=== PATIENT | female | born 1975 | race African-American/Black ===

== ENCOUNTER 2017-03-15 22:12 | Emergency (ER) | payer MEDICAID ==
[~2017-03-15] VITALS: Ht 170.2 cm; Wt 84.0 kg
[~2017-03-15 22:12] MED LIST: QUET50TA11 PO
[2017-03-16] MEDS ORDERED: DIPHENHYDRAMINE 25MG CAPSULE PO ONE (00:30)
[2017-03-16] MEDS ORDERED: PREDNISONE 20MG TABLET PO ONE (00:30)
[2017-03-16 01:04] VITALS: BP 126/77
== END 2017-03-16 01:15 | disposition home or self-care (01) ==
LOC: ER 03-16 01:11
DX: L29.9 Pruritus, unspecified (principal); W57.XXXA Bitten or stung by nonvenomous insect and other nonvenomous arthropods, initial encounter; Y93.89 Activity, other specified; F31.9 Bipolar disorder, unspecified; F17.210 Nicotine dependence, cigarettes, uncomplicated; Z88.2 Allergy status to sulfonamides; Y92.9 Unspecified place or not applicable; Y99.8 Other external cause status
CPT/HCPCS: 99283; Q0163

== ENCOUNTER 2017-05-21 16:08 | Emergency (ER) | payer MEDICAID ==
[~2017-05-21] VITALS: Ht 165.1 cm; Wt 65.0 kg
[2017-05-21 16:16] VITALS: BP 100/60
== END 2017-05-21 19:45 | disposition left against medical advice (07) ==
LOC: ER 16:37
DX: M79.662 Pain in left lower leg (principal); Z53.21 Procedure and treatment not carried out due to patient leaving prior to being seen by health care provider

== ENCOUNTER 2017-06-16 11:38 | Emergency (ER) | payer MEDICAID ==
[~2017-06-16] VITALS: Ht 162.6 cm; Wt 60.0 kg
[~2017-06-16 11:38] MED LIST changes: +QUET50TA PO; -QUET50TA11 PO
[2017-06-16 19:28] LABS: HEMATOCRIT. 35.1 % (36.0-48.0); HEMOGLOBIN. 11.8 g/dL (12.0-16.0); MEAN CORPUSCULAR HEMOGLOBIN 32.8 pg (28.0-32.0); MEAN CORPUSCULAR VOLUME 97.4 fL (81.0-99.0); MEAN PLATELET VOLUME 12.6 fl (7.4-10.4); RED CELL DISTRIBUTION WIDTH 17.3 % (11.6-14.6)
[2017-06-16 19:32] LABS: PLATELET 44 x1000/uL (130-400)
[2017-06-16 19:33] LABS: HCG SCREEN NEGATIVE
[2017-06-16 19:34] LABS: CARBON DIOXIDE 24 mEq/L (21-32); CHLORIDE 98 mEq/L (98-107); ETHANOL BLOOD < 10 mg/dL
[2017-06-16] MEDS ORDERED: ACETAMINOPHEN 325MG TABLET PO STA (19:51)
[2017-06-16 20:03] LABS: CLARITY URINE CLOUDY (CLEAR); COLOR URINE ORANGE (YELLOW); GLUCOSE URINE NEGATIVE (NEGATIVE); KETONES URINE NEGATIVE (NEGATIVE); LEUKOCYTE ESTERASE URINE 1+ (NEGATIVE); NITRITE URINE POSITIVE (NEGATIVE); OCCULT BLOOD URINE NEGATIVE (NEGATIVE); PROTEIN URINE 2+ (NEGATIVE); SPECIFIC GRAVITY URINE 1.033 (1.005-1.030)
[2017-06-16 20:13] LABS: *AMPHETAMINES SCREEN URINE NEGATIVE (NEGATIVE); *BARBITURATES SCREEN URINE NEGATIVE (NEGATIVE); *BENZODIAZEPINES SCREEN URINE NEGATIVE (NEGATIVE); METHADONE URINE SCREEN NEGATIVE (NEGATIVE); OPIATES URINE SCREEN NEGATIVE (NEGATIVE); PHENCYCLIDINE URINE SCREEN NEGATIVE (NEGATIVE)
[2017-06-16] MEDS ORDERED: ACETAMINOPHEN 500MG TABLET PO SCH (20:15)
[2017-06-16] MEDS ORDERED: QUETIAPINE FUMARATE 50MG TABLET PO SCH (20:15)
[2017-06-16] MEDS ORDERED: NITROFURANTOIN 100MG M/M CAPSULE PO ONE (20:15)
[2017-06-16 20:20] LABS: *COCAINE SCREEN URINE PRESUMTIVE POSITIVE (NEGATIVE); CANNABINOID URINE SCREEN PRESUMTIVE POSITIVE (NEGATIVE)
[2017-06-16 20:51] LABS: ATYPICAL LYMPHOCYTES 1; NUCLEATED RED BLOOD CELLS 1 /100 WBC; PLATELET ESTIMATE MARKEDLY DECREASED
[2017-06-17 06:32] VITALS: BP 93/63
== END 2017-06-17 11:00 | disposition home or self-care (01) ==
LOC: ER 11:47
DX: F29 Unspecified psychosis not due to a substance or known physiological condition (principal); N39.0 Urinary tract infection, site not specified; E87.1 Hypo-osmolality and hyponatremia; E87.6 Hypokalemia; R79.89 Other specified abnormal findings of blood chemistry; Z88.2 Allergy status to sulfonamides; G40.909 Epilepsy, unspecified, not intractable, without status epilepticus; F31.9 Bipolar disorder, unspecified
CPT/HCPCS: 36415; 71010; 80053; 80305; 81001; 84703; 85025; 99285; G0482